=== PATIENT | female | born 1955 | race Caucasian/White ===

== ENCOUNTER 2020-05-20 14:36 | Outpatient (CLI) | payer MEDICARE, SELFPAY ==
[2020-05-20 16:27] LABS: Hemoglobin A1C 5.4 % (<5.7)
[2020-05-20 16:44] LABS: Free T4 Free Thyroxine 1.41 ng/mL (0.78-2.19)
[2020-05-20 16:55] LABS: Thyroid Stimulating Hormone 0.103 uIU/mL (0.465-4.680)
[2020-05-24 08:34] LABS: Triiodothyronine T3 Free 3.3 pg/mL (2.3-4.2)
== END 2020-05-20 14:37 | disposition home or self-care (01) ==
LOC: ANHWCLAB 14:40
PROVIDERS: Referring Provider Internal Medicine Endocrinology, Diabetes & Metabolism; Visit Provider Internal Medicine Endocrinology, Diabetes & Metabolism
DX: E03.9 Hypothyroidism, unspecified (principal); R73.03 Prediabetes; E04.9 Nontoxic goiter, unspecified
CPT/HCPCS: 36415; 83036; 84439; 84443; 84481